=== PATIENT | female | born 1960 | race Caucasian/White ===

== ENCOUNTER → 2018-04-09 | Outpatient (CLI) | payer BC ==
[~2018-04-09] MED LIST: ATARAX25 MG PO; BENICAR; DECADRON 4MG TAB4 MG PO; HCTZ; KEPPRA PO
== END ==
LOC: MC.RAD 06:55
DX: Z12.31 Encounter for screening mammogram for malignant neoplasm of breast (principal)

== ENCOUNTER → 2021-11-02 | Outpatient (CLI) | payer BC | LOC: COL.RAD 07:24 | DX: K76.0 Fatty (change of) liver, not elsewhere classified (principal); K76.89 Other specified diseases of liver; L29.9 Pruritus, unspecified; R61 Generalized hyperhidrosis; F10.21 Alcohol dependence, in remission; Z90.49 Acquired absence of other specified parts of digestive tract ==

== ENCOUNTER → 2021-12-07 | Outpatient (CLI) | payer BC | LOC: COL.VAS 09:36 | DX: H34.231 Retinal artery branch occlusion, right eye (principal); H54.61 Unqualified visual loss, right eye, normal vision left eye; I10 Essential (primary) hypertension ==

== ENCOUNTER → 2022-08-01 | Outpatient (CLI) | payer BC | LOC: MC.RAD 10:34 | DX: Z12.31 Encounter for screening mammogram for malignant neoplasm of breast (principal) ==

== ENCOUNTER → 2023-09-04 | Outpatient (CLI) | payer BC ==
[~2023-09-04] MED LIST changes: +ASPIRIN 81M81 MG/TA2 PO; +CELEXA40 MG PO; +DIOVAN320 MG PO; +Iohexol 300 - 100 ML VIAL IV ONE; +KEPPRA1000 MG PO; +LIPITOR 80MG80 MG PO; +NORVASC 10MG10 MG PO; +NS 100 ML IV SCH; +OCUVITE1 TA1 PO; +PLAVIX 75MG TAB75 MG PO; +VIMPAT200 MG PO
== END ==
LOC: COL.RAD 14:18
DX: I63.511 Cerebral infarction due to unspecified occlusion or stenosis of right middle cerebral artery (principal); I25.10 Atherosclerotic heart disease of native coronary artery without angina pectoris
CPT/HCPCS: Q9967